=== PATIENT | male | born 1975 | race Caucasian/White ===

== ENCOUNTER 2023-11-26 15:44 | Emergency (ER) | payer BC, MEDICAID ==
[~2023-11-26] VITALS: Ht 180.3 cm; Wt 108.0 kg
[~2023-11-26 15:44] MED LIST: MULT-1085 PO; PANT40TA54 PO
[2023-11-26 15:51] VITALS: BP 163/78; PULSE 90; RESP 16; TEMP 98; O2SAT 98
== END 2023-11-26 18:38 | disposition left against medical advice (07) ==
LOC: ER 15:45
DX: R20.0 Anesthesia of skin (principal); Z53.21 Procedure and treatment not carried out due to patient leaving prior to being seen by health care provider
CPT/HCPCS: 99281